=== PATIENT | female | born 1970 | race Hispanic/Latino ===

== ENCOUNTER 2020-02-20 10:37 | Emergency (ER) | payer MEDICARE ==
[2020-02-20 10:45] VITALS: BP 125/75
--- NOTE | 2020-02-20 11:47 | XRay Report ---
ABDOMEN 3 VIEW(S) INDICATION / CLINICAL INFORMATION: constipation. COMPARISON: None available. FINDINGS: TUBES / LINES: None. BOWEL GAS PATTERN: Nonobstructive pattern. Prominent distal colonic stool burden especially the recto sigmoid colon region. FREE AIR / EXTRALUMINAL GAS: None seen. ADDITIONAL FINDINGS: No significant additional findings. IMPRESSION: 1. Probable constipation with questionable evolving fecal impaction. Otherwise nonobstructive bowel g as pattern. Signer Name: William Serrano MD Signed: 02/20/2020 11:43 AM Workstation Name: [id number]
[2020-02-20] MEDS ORDERED: MAGNESIUM CITRATE 300 ML ORAL LIQD PO ONE (11:53)
--- NOTE | 2020-02-20 12:12 | Emergency Department Report ---
ED General Adult HPI - General Chief complaint: Abdominal Pain Stated complaint: CONSTIPATION Time Seen by Provider: 02/20/20 11:24 Source: patient Mode of arrival: Ambulatory Limitations: No Limitations - History of Present Illness Initial comments: Patient is a 49-year-old female presents emergency room with complaints of constipation for 6 days. She denies any nausea, vomiting, diarrhea, fever, hematemesis, hematochezia, melena. She is able to tolerate p.o. intake. She has not tried anything for constipation. She has a past medical history of DM, HTN, HLD, arthritis. She denies any allergies to medications. She states that she is currently at anchor. She denies any SI or HI. - Related Data Previous Rx's Medication Instructions Recorded Last Taken Type Blood Sugar Diagnostic [Accu-Chek 1 each MC TID #30 strip 02/20/20 Unknown Rx Guide Test Strip] Docusate Sodium [Colace] 100 mg PO BID PRN #14 capsule 02/20/20 Unknown Rx Sodium Phosphate,Grundy-Dibasic 266 ml RC ONCE #1 enema 02/20/20 Unknown Rx [Enema Ready To Use] Sub-Q Infusion Pump Accessory 1 each MC TID #1 each 02/20/20 Unknown Rx [Accu-Chek] Allergies Allergy/AdvReac Type Severity Reaction Status Date / Time No Known Allergies Allergy Verified 02/20/20 10:40 ED Review of Systems ROS: Stated complaint: CONSTIPATION Other details as noted in HPI Comment: All other systems reviewed and negative ED Past Medical Hx - Past Medical History Previous Medical History?: Yes Hx Hypertension: Yes Hx Diabetes: Yes - Surgical History Past Surgical History?: Yes Additional Surgical History: tubal ligation - Social History Smoking Status: Never Smoker Substance Use Type: None - Medications Home Medications: Home Medications Medication Instructions Recorded Confirmed Last Taken Type Blood Sugar Diagnostic [Accu-Chek 1 each MC TID #30 strip 02/20/20 Unknown Rx Guide Test Strip] Docusate Sodium [Colace] 100 mg PO BID PRN #14 capsule 02/20/20 Unknown Rx Sodium Phosphate,Grundy-Dibasic 266 ml RC ONCE #1 enema 02/20/20 Unknown Rx [Enema Ready To Use] Sub-Q Infusion Pump Accessory 1 each MC TID #1 each 02/20/20 Unknown Rx [Accu-Chek] ED Physical Exam - General Limitations: No Limitations General appearance: alert, in no apparent distress - Head Head exam: Present: atraumatic, normocephalic - Eye Eye exam: Present: normal appearance - ENT ENT exam: Present: mucous membranes moist - Respiratory Respiratory exam: Present: normal lung sounds bilaterally. Absent: respiratory distress, wheezes, rales, rhonchi, stridor, chest wall tenderness, accessory muscle use, decreased breath sounds, prolonged expiratory - Cardiovascular Cardiovascular Exam: Present: regular rate, normal rhythm, normal heart sounds. Absent: systolic murmur, diastolic murmur, rubs, gallop - GI/Abdominal GI/Abdominal exam: Present: soft, normal bowel sounds, other (protuberant abdomen). Absent: distended, tenderness, guarding, rebound, rigid - Neurological Exam Neurological exam: Present: alert, oriented X3 - Psychiatric Psychiatric exam: Present: normal affect, normal mood - Skin Skin exam: Present: warm, dry, intact ED Course Vital Signs 02/20/20 10:41 Temperature 98.1 F Pulse Rate 82 Respiratory 20 Rate Blood Pressure 125/75 O2 Sat by Pulse 97 Oximetry ED Medical Decision Making - Lab Data Lab Results 02/20/20 Range/Units 12:08 POC Glucose 92 (70-105) - Radiology Data Radiology results: report reviewed ABDOMEN 3 VIEW(S) INDICATION / CLINICAL INFORMATION: constipation. COMPARISON: None available. FINDINGS: TUBES / LINES: None. BOWEL GAS PATTERN: Nonobstructive pattern. Prominent distal colonic stool burden especially the rectosigmoid colon region. FREE AIR / EXTRALUMINAL GAS: None seen. ADDITIONAL FINDINGS: No significant additional findings. IMPRESSION: 1. Probable constipation with questionable evolving fecal impaction. Otherwise nonobstructive bowel gas pattern. Signer Name: William Serrano MD Signed: 02/20/2020 11:43 AM Workstation Name: [id number] Transcribed By: JW Dictated By: William Serrano MD Electronically Authenticated By: William Serrano MD Signed Date/Time: 02/20/20 1143 DD/ 1141 TD/TT: - Medical Decision Making Patient is a 49-year-old female presents emergency room with complaints of constipation for 6 days. She denies any nausea, vomiting, diarrhea, fever, hematemesis, hematochezia, melena. She is able to tolerate p.o. intake. She has not tried anything for constipation. She has a past medical history of DM, HTN, HLD, arthritis. She denies any allergies to medications. She states that she is currently at anchor. She denies any SI or HI. Also normal. No abdominal tenderness on exam, no guarding, no rebound, no rigidity, no peritoneal signs, normal bowel sounds. XR abdomen: 1. Probable constipation with questionable evolving fecal impaction. Otherwise nonobstructive bowel gas pattern. Patient does not have any obstructive signs or symptoms at this time. Patient given magnesium citrate while in the ED. patient's blood sugar is normal, 92 on Accu-Chek by nurse. Patient given prescription for an enema to do herself and Colace. Patient also requested if she could have a prescription for an Accu-Chek machine. advised pt Please use as prescribed. Increase your water intake. Increase your fiber intake. Follow-up with a primary care doctor. Return to the emergency room immediately for any new or worsening symptoms. Critical care attestation.: If time is entered above; I have spent that time in minutes in the direct care of this critically ill patient, excluding procedure time. ED Disposition Clinical Impression: Constipation Qualifiers: Constipation type: unspecified constipation type Qualified Code(s): K59.00 - Constipation, unspecified Disposition: TO HOME OR SELFCARE Is pt being admited?: No Does the pt Need Aspirin: No Condition: Stable Instructions: Constipation (ED), High Fiber Diet (ED) Additional Instructions: Please use as prescribed. Increase your water intake. Increase your fiber intake. Follow-up with a primary care doctor. Return to the emergency room immediately for any new or worsening symptoms. Prescriptions: Sub-Q Infusion Pump Accessory [Accu-Chek] 1 each MC TID #1 each Blood Sugar Diagnostic [Accu-Chek Guide Test Strip] 1 each MC TID #30 strip Docusate Sodium [Colace] 100 mg PO BID PRN #14 capsule PRN Reason: constipation Sodium Phosphate,Grundy-Dibasic [Enema Ready To Use] 266 ml RC ONCE #1 enema Referrals: SE KERN MD [Primary Care Provider] - 2-3 Days NBA COTTO MD [Staff Physician] - 2-3 Days [facility] [Outside] - 2-[address] [facility] [Outside] - 2-3 Days Time of Disposition: 12:46 Print Language: BHUTANESE
== END 2020-02-20 13:14 | disposition home or self-care (01) ==
LOC: ED 10:37
DX: K59.00 Constipation, unspecified (principal); I10 Essential (primary) hypertension; E11.9 Type 2 diabetes mellitus without complications
CPT/HCPCS: 74019; 82962; 99283